=== PATIENT | female | born 1965 | race Caucasian/White ===

== ENCOUNTER 2017-10-04 10:50 | Emergency (ER) | payer MEDICAID ==
--- NOTE | 2017-10-04 12:16 | ED Physician Documentation ---
History of Present Illness - Stated complaint Stated Complaint: L EAR PAIN - Chief complaint Chief Complaint: Heent - History obtained from History obtained from: Patient, Family - History of Present Illness Timing: Today Pain level max: 8 Pain level now: 8 Improved by: rest Worsened by: moving - Additonal information Additional information: Patient is a 52-year-old female who presents to the emergency department with left ear pain starting today. Denies any other symptoms. No fevers, no rhinorrhea, no congestion. No sore throat. Does feel pain along the left side of her jaw. Also feels lightheaded when moving quickly. No chest pain. No palpitations. Review of Systems Constitutional: denies: Fever, Chills Nose: denies: Rhinorrhea / runny nose, Congestion Throat: denies: Sore throat Cardiac: denies: Chest pain / pressure Respiratory: denies: Cough GI: denies: Abdominal Pain, Nausea, Vomiting, Diarrhea Skin: denies: Rash Musculoskeletal: denies: Neck pain, Back pain Neurologic: denies: Headache PD PAST MEDICAL HISTORY - Past Medical History Past Medical History: No - Present Medications Home Medications: Ambulatory Orders Medication Instructions Recorded Confirmed Azithromycin [Zithromax] 0 mg PO DAILY #6 tablet 10/04/17 - Allergies Allergies/Adverse Reactions: Allergies Allergy/AdvReac Type Severity Reaction Status Date / Time morphine Allergy Anaphylaxis Verified 10/04/17 10:56 - Social History Does the pt smoke?: No Smoking Status: Never smoker Does the pt drink ETOH?: No Does the pt have substance abuse?: No - Immunizations Immunizations are current?: Yes - POLST Patient has POLST: No PD ED PE NORMAL - Vitals Vital signs reviewed: Yes - General General: Alert and oriented X 3, No acute distress - HEENT HEENT: PERRL, Moist mucous membranes, Pharynx benign, Other (Right tympanic membrane is normal. Left tympanic membrane is erythematous, dull, bulging with loss of landmarks. Fluid present behind the eardrum.) - Neck Neck: Supple, no meningeal sign, Other (Mild left-sided cervical lymphadenopathy ) - Cardiac Cardiac: RRR - Respiratory Respiratory: No respiratory distress, Clear bilaterally - Derm Derm: Warm and dry - Neuro Neuro: Alert and oriented X 3 - Psych Psych: Normal mood, Normal affect Results - Vitals Vitals: Vital Signs - 24 hr 10/04/17 10:54 Temperature 36.2 C L Heart Rate 87 Respiratory 16 Rate Blood Pressure 147/92 H O2 Saturation 96 PD MEDICAL DECISION MAKING - ED course Complexity details: considered differential, d/w patient ED course: Patient is a 52-year-old female with a left acute otitis media. Will place on antibiotics and follow-up closely with her doctor. No tympanic membrane rupture. Patient counseled regarding signs and symptoms for which I believe and urgent re-evaluation would be necessary. Patient with good understanding of and agreement to plan and is comfortable going home at this time This document was made in part using voice recognition software. While efforts are made to proofread this document, sound alike and grammatical errors may occur. - Sepsis Event Vital Signs: Vital Signs - 24 hr 10/04/17 10:54 Temperature 36.2 C L Heart Rate 87 Respiratory 16 Rate Blood Pressure 147/92 H O2 Saturation 96 Departure - Departure Disposition: 01 Home, Self Care Clinical Impression: Acute otitis media Qualifiers: Otitis media type: suppurative Laterality: left Recurrence: not specified as recurrent Spontaneous tympanic membrane rupture: without spontaneous rupture Qualified Code(s): H66.002 - Acute suppurative otitis media without spontaneous rupture of ear drum, left ear Condition: Good Instructions: ED Otitis Media Acute Adult Follow-Up: your,doctor in 1 week [Other] Prescriptions: Azithromycin [Zithromax] 0 mg PO DAILY #6 tablet Comments: Take all antibiotics until gone. Return if you worsen.
[2017-10-04 12:32] VITALS: BP 131/74
== END 2017-10-04 12:31 | disposition home or self-care (01) ==
LOC: ED 10:50
DX: H66.002 Acute suppurative otitis media without spontaneous rupture of ear drum, left ear (principal)
CPT/HCPCS: 99283

== ENCOUNTER 2018-02-10 08:06 | Emergency (ER) | payer MEDICAID ==
[2018-02-10] MEDS ORDERED: LIDOCAINE VISCOUS 2% 15 ML UDC MM STA (08:22)
[2018-02-10] MEDS ORDERED: PROMETHAZINE INJ 25 MG in SODIUM CHLORIDE 0.9% 50 ML IV STA (08:22)
[2018-02-10] MEDS ORDERED: SODIUM CHLORIDE 0.9% 1,000 ML IV ONE (08:22)
[2018-02-10] MEDS ORDERED: MAG HYDROX/AL HYDROX/SIMETH 30 ML UDC PO STA (08:23)
[2018-02-10] MEDS ORDERED: DICYCLOMINE 10 MG CAPSULE PO STA (08:23)
--- NOTE | 2018-02-10 08:25 | ED Physician Documentation ---
PD HPI ABD PAIN - Stated complaint Stated Complaint: ABD PX - History obtained from History obtained from: Patient, Friend - History of Present Illness Timing - onset: How many months ago (1) Timing - duration: Months (1) Timing - details: Abrupt onset, Still present, Waxing and waning Quality: Cramping, Sharp, Pain Location: Epigastric Radiation: Chest Improved by: Laying still, Meds Worsened by: Eating, Position, Palpation Associated symptoms: Nausea, Vomiting (dry heaves only has mulugeta) Similar symptoms before: Diagnosis (esophageal spasm) Recently seen: Not recently seen - Additional information Additional information: 52-year-old female who is status post Heath fundoplication has developed acute nausea and dry heaves she is not able to vomit and she has a significant amount of epigastric pain. She has had this happen to her off and on a number of times and for the past month she has been bothered by this and is not her usual medic ations to medicate it. She usually uses some Phenergan and some Bentyl when these episodes occur. She is recently moved to the area and has not been able to establish care as yet. She does have an appointment to see somebody at [facility]. Review of Systems Constitutional: denies: Fever Eyes: denies: Decreased vision Ears: denies: Ear pain Nose: denies: Congestion Throat: denies: Sore throat Cardiac: denies: Chest pain / pressure, Palpitations Respiratory: denies: Dyspnea, Cough GI: reports: Abdominal Pain, Nausea, Vomiting. denies: Constipation, Diarrhea : denies: Dysuria, Frequency PD PAST MEDICAL HISTORY - Present Medications Home Medications: Ambulatory Orders Medication Instructions Recorded Confirmed Dicyclomine [Bentyl] 10 mg PO QID PRN #20 capsule 02/10/18 Promethazine [Phenergan] 25 - 50 mg PO Q6H PRN #10 tab 02/10/18 - Allergies Allergies/Adverse Reactions: Allergies Allergy/AdvReac Type Severity Reaction Status Date / Time morphine Allergy Anaphylaxis Verified 02/10/18 08:25 - Social History Does the pt smoke?: No Smoking Status: Never smoker Does the pt drink ETOH?: No Does the pt have substance abuse?: No - Immunizations Immunizations are current?: Yes - POLST Patient has POLST: No PD ED PE NORMAL - Vitals Vital signs reviewed: Yes - General General: Alert and oriented X 3, Well developed/nourished, Other (appears to be in pain with gifted teacher tone and flat affect) - HEENT HEENT: Atraumatic, PERRL, EOMI, Other (dry mucous membranes) - Neck Neck: Supple, no meningeal sign, No bony TTP - Cardiac Cardiac: RRR, No murmur - Respiratory Respiratory: No respiratory distress, Clear bilaterally - Abdomen Abdomen: Soft, Other (mild epigastric tenderness ) - Back Back: No CVA TTP, No spinal TTP - Derm Derm: Normal color, Warm and dry, No rash - Extremities Extremities: No deformity, No edema - Neuro Neuro: Alert and oriented X 3, 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, No motor deficit, No sensory deficit, Normal speech Eye Opening: Spontaneous Motor: Obeys Commands Verbal: Oriented GCS Score: 15 - Psych Psych: Normal mood Results - Vitals Vitals: Vital Signs - 24 hr 02/10/18 02/10/18 02/10/18 08:10 09:45 11:05 Temperature 36.2 C L Heart Rate 90 88 89 Respiratory 20 18 18 Rate Blood Pressure 172/100 H 154/90 H 164/98 H O2 Saturation 100 97 Oxygen O2 Source Room air - Labs Labs: Laboratory Tests 02/10/18 02/10/18 02/10/18 08:35 08:35 08:35 WBC 7.9 RBC 4.44 Hgb 14.7 Hct 41.4 MCV 93.3 MCH 33.2 H MCHC 35.6 RDW 13.3 Plt Count 328 MPV 7.7 L Neut # (Auto) 5.2 Lymph # (Auto) 2.1 [place] # (Auto) 0.5 Eos # (Auto) 0.1 Baso # (Auto) 0.0 Absolute Nucleated RBC 0.00 Nucleated RBC % 0.1 Sodium 138 Potassium 3.8 Chloride 106 Carbon Dioxide 23 Anion Gap 9.0 BUN 9 Creatinine 0.6 Estimated GFR (MDRD) 105 Glucose 119 H Calcium 8.7 Total Bilirubin 0.6 AST 26 ALT 28 Alkaline Phosphatase 125 H Troponin I < 0.04 Total Protein 7.6 Albumin 4.1 Globulin 3.5 Albumin/Globulin Ratio 1.2 Lipase 37 Procedures - IVC sono (time) 0820 Bedside IVC sono: IVC measures (cm) (1.28), Dehydration (mild est <1 liter deficit) PD MEDICAL DECISION MAKING - ED course Complexity details: reviewed old records, reviewed results, re-evaluated patient, considered differential, d/w patient ED course: 52-year-old female with a Heath fundoplication has developed nausea and epigastric pain she is not able to vomit she is having a lot of dry heaves. Here in the emergency department we have treated her with medications she has requested including Phenergan and Bentyl. She is also given a GI cocktail and a liter of saline. She requires a dose of diluadid to get the spasm to stop. She has had some luck getting these episodes under control with the use of phenergan and bentyl. Departure - Departure Disposition: 01 Home, Self Care Clinical Impression: Esophageal spasm Condition: Stable Instructions: ED Spasm Esophageal Follow-Up: [facility] [Provider Group] Prescriptions: Dicyclomine [Bentyl] 10 mg PO QID PRN #20 capsule PRN Reason: Spasms Promethazine [Phenergan] 25 - 50 mg PO Q6H PRN #10 tab PRN Reason: Nausea / Vomiting
[2018-02-10 08:42] LABS: BASOPHILS % (AUTO) 0.5 %; EOSINOPHILS # (AUTO) 0.1 10^3/uL (0.0-0.7); EOSINOPHILS % (AUTO) 1.7 %; HGB - HEMOGLOBIN 14.7 g/dL (12.0-16.0); LYMPHOCYTES # (AUTO) 2.1 10^3/uL (1.5-3.5); LYMPHOCYTES % (AUTO) 26.4 %; MEAN CORPUSCULAR HEMOGLOBIN 33.2 pg (27.0-31.0); MEAN CORPUSCULAR HGB CONC 35.6 g/dL (32.0-36.0); MEAN CORPUSCULAR VOLUME 93.3 fL (81.0-99.0); MEAN PLATELET VOLUME 7.7 fL (7.9-10.8); MONOCYTES # (AUTO) 0.5 10^3/uL (0.0-1.0); MONOCYTES % (AUTO) 5.9 %; NEUTROPHILS # (AUTO) 5.2 10^3/uL (1.5-6.6); NEUTROPHILS % (AUTO) 65.5 %; PLT - PLATELET COUNT 328 10^3/uL (130-450); RED BLOOD COUNT 4.44 10^6/uL (4.20-5.40); RED CELL DISTRIBUTION WIDTH 13.3 % (12.0-15.0); WHITE BLOOD COUNT 7.9 x10^3/uL (4.8-10.8)
[2018-02-10 08:56] LABS: ALBUMIN 4.1 g/dL (3.2-5.5); ALBUMIN/GLOBULIN RATIO 1.2 (1.0-2.2); BILIRUBIN,TOTAL 0.6 mg/dL (0.2-1.0); CALCIUM 8.7 mg/dL (8.5-10.3); CREATININE 0.6 mg/dL (0.4-1.0); TOTAL PROTEIN 7.6 g/dL (6.7-8.2)
[2018-02-10] MEDS ORDERED: HYDROmorphone 1 MG/ML CARPUJECT IVP STA (10:44)
[2018-02-10 11:54] VITALS: BP 136/82
== END 2018-02-10 12:03 | disposition home or self-care (01) ==
LOC: ED 08:06
DX: K22.4 Dyskinesia of esophagus (principal); E86.0 Dehydration; Z98.890 Other specified postprocedural states
CPT/HCPCS: 36415; 80053; 83690; 84484; 85025; 96361; 96365; 96375; 99283; 99284; A9270; J1170; J7040

== ENCOUNTER 2018-07-06 14:02 | Outpatient (CLI) | payer MEDICAID | END 2018-07-06 14:03 | disposition home or self-care (01) | LOC: SC 14:02 | PROVIDERS: ATTEND Internal Medicine Pulmonary Disease | DX: G47.10 Hypersomnia, unspecified (principal); R06.81 Apnea, not elsewhere classified; R06.83 Snoring; G47.8 Other sleep disorders; R41.89 Other symptoms and signs involving cognitive functions and awareness | CPT/HCPCS: 99203; 99212 ==

== ENCOUNTER → 2018-07-26 | Outpatient (CLI) | payer MEDICAID | LOC: SC 19:30 | PROVIDERS: ATTEND Internal Medicine Pulmonary Disease | DX: G47.33 Obstructive sleep apnea (adult) (pediatric) (principal) | CPT/HCPCS: 95806 ==

== ENCOUNTER 2018-09-14 14:12 | Outpatient (CLI) | payer MEDICAID | END 2018-09-14 14:13 | disposition home or self-care (01) | LOC: SC 14:12 | PROVIDERS: ATTEND Internal Medicine Pulmonary Disease | DX: G47.33 Obstructive sleep apnea (adult) (pediatric) (principal) | CPT/HCPCS: 99212; 99213 ==

== ENCOUNTER 2018-09-29 07:35 | Day surgery (SDC) | payer MEDICAID ==
[2018-09-29] MEDS ORDERED: LACTATED RINGERS 1,000 ML IV ONE ×2 (07:45→10:10)
[2018-09-29] MEDS ORDERED: CEFAZOLIN SODIUM IN 0.9 % NACL 2 GM/100 ML BAG IV ONE (08:01)
--- NOTE | 2018-09-29 08:39 | ANESTHESIA ---
Pre-Anesthesia VS, & Labs - Diagnosis left thumb first joint arthritis - Procedure left thumb carpal metacarpal arthroplasty Vital Signs: Temp Pulse Resp BP Pulse Ox 36.2 C L 78 16 132/84 H 100 09/29/18 07:50 09/29/18 07:50 09/29/18 07:50 09/29/18 07:50 09/29/18 07:50 Height 5 ft 1 in Weight (kg) 73.6 kg Body Mass Index 30.2 - NPO >8 hours - Is Patient ?: Not Applicable Home Medications and Allergies Home Medications: Ambulatory Orders Chlorthalidone 12.5 mg PO DAILY 09/23/18 Ferrous Sulfate 325 mg PO ONCE 09/23/18 Gabapentin 200 mg PO TID 09/23/18 Ipratropium [Atrovent] 1 - 2 puffs INH Q6H PRN 09/23/18 Lisinopril 20 mg PO DAILY 09/23/18 Oxybutynin Chloride 5 mg PO BID PRN 09/23/18 Sucralfate [Carafate] 1 gm PO ACHS 09/23/18 Chlorthalidone 12.5 mg PO DAILY 09/23/18 Ferrous Sulfate 325 mg PO ONCE 09/23/18 Gabapentin 200 mg PO TID 09/23/18 Ipratropium [Atrovent] 1 - 2 puffs INH Q6H PRN 09/23/18 Lisinopril 20 mg PO DAILY 09/23/18 Oxybutynin Chloride 5 mg PO BID PRN 09/23/18 Sucralfate [Carafate] 1 gm PO ACHS 09/23/18 Allergies/Adverse Reactions: Allergies Allergy/AdvReac Type Severity Reaction Status Date / Time morphine Allergy Anaphylaxis Verified 03/25/18 14:03 Anes History & Medical History - Anesthetic History Anesthesia Complications: reports: Post-Operative Nausea/Vomiting Family history of Anesthesia Complications: Denies Family history of Malignant Hyperthermia: Denies - Medical History Cardiovascular: reports: Hypertension Pulmonary: reports: Sleep apnea Gastrointestinal: reports: Hiatal hernia Urinary: reports: None Musculoskeletal: reports: Osteoarthritis Endocrine/Autoimmune: reports: None Skin: reports: None Smoking Status: Never smoker - Surgical History General: Gastric surgery Gynecologic: Hysterectomy Exam General: Alert, Oriented x3, Cooperative, No acute distress Dental: Loose/Frag Mouth Openin Fingerbreadth Neck Mobility: Normal Mallampati classification: II Thyromental Distance: greater than 6 cm Respiratory: Lungs clear, Normal breath sounds, No respiratory distress, No accessory muscle use Cardiovascular: Regular rate, Normal S1, Normal S2, No murmurs Plan Anesthesia Type: General Consent for Procedure(s) Verified and Reviewed: Yes Code Status: Attempt Resuscitation ASA classification: 2-Mild systemic disease Is this case an emergency?: No
[2018-09-29] MEDS ORDERED: SCOPOLAMINE PATCH TOP ONE (08:50)
[2018-09-29] MEDS ORDERED: BUPIVACAINE 0.25% PF 30 ML VIAL ONE ×2 (09:11→09:16)
[2018-09-29] MEDS ORDERED: BUPIVACAINE 0.25% PF 30 ML VIAL SUBQ ONE ×2 (09:19)
[2018-09-29] MEDS ORDERED: MIDAZOLAM 2 MG/2 ML VIAL IVP ONE (10:20)
[2018-09-29] MEDS ORDERED: KETOROLAC 30 MG/ML VIAL IVP ONE (10:20)
[2018-09-29] MEDS ORDERED: fentaNYL 100 MCG/2 ML VIAL IVP ONE (10:20)
[2018-09-29] MEDS ORDERED: ONDANSETRON 4 MG/2 ML VIAL IVP ONE (10:20)
[2018-09-29] MEDS ORDERED: LIDOCAINE-MPF 2% 5 ML VIAL IM ONE (10:20)
[2018-09-29] MEDS ORDERED: PROPOFOL 200 MG/20 ML VIAL IVP ONE (10:20)
[2018-09-29] MEDS ORDERED: DEXAMETHASONE 4 MG/ML VIAL IVP ONE (10:20)
[2018-09-29] MEDS ORDERED: ONDANSETRON 4 MG/2 ML VIAL IVP PRN (10:54)
[2018-09-29] MEDS: HYDROmorphone 0.5 MG/0.5 ML SYRINGE IVP PRN ×2 (11:07→11:14)
[2018-09-29] MEDS: HYDROmorphone 0.5 MG/0.5 ML SYRINGE ONE ×2 (11:20→11:25)
[2018-09-29] MEDS ORDERED: ONDANSETRON 4 MG/2 ML VIAL ONE (11:37)
[2018-09-29] MEDS ORDERED: traMADol 50 MG TABLET PO PRN (12:25)
[2018-09-29 14:40] VITALS: BP 131/71
--- NOTE | 2018-09-29 20:33 | PROCEDURE REPORT ---
DATE OF SERVICE: 09/29/2018 Physician: Sara Gerber MD PREOPERATIVE DIAGNOSIS: Right thumb first carpometacarpal joint arthritis and loose bodies. POSTOPERATIVE DIAGNOSIS: Right thumb first carpometacarpal joint arthritis and loose bodies. PROCEDURE PERFORMED: Left thumb first carpometacarpal joint arthroplasty with trapezium excision and removal of loose bodies and suspension arthroplasty utilizing flexor carpi radialis tendon. SURGEON: Sara Gerber MD ANESTHESIA: General by Donny Hernández. 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 DESCRIPTION OF OPERATIVE PROCEDURE: The patient was taken to the operating room and was given a gene ral anesthetic in a supine position. A tourniquet was placed on the left arm. The left forearm and hand were sterilely prepped and draped in standard fashion. Surgical timeout was held. The limb was exsanguinated and the tourniquet inflated to 250 mmHg. The patient's thumb was approached through a curved incision over the base of the thumb, carefully through skin and subcutaneous tissue, dissecti ng down to the extensor tendons. These were carefully retracted to the side, which then exposed the base of the bone. The capsule of the first carpometacarpal joint was opened longitudinally, extendin g that dissection proximally until the crossing vessels were identified, and then reflecting tissue o ff the trapezium to allow excision of that bone, which was accomplished utilizing a small saw, follow ed by osteotome and rongeur. Multiple loose bodies were identified in and around the base of the fir st metacarpal and these were removed. At this point, the flexor carpi radialis was harvested utiliz ing dissection up along the course of the tendon and dividing it to use the distal stump as a ligamen t reconstruction. Whip stitches of Ti-Cron were placed into this and it was set aside. A drill hole was made in the base of the thumb and widened to accept this graft, and then the thumb was positione d so that the graft could be passed, and once passed the thumb was then pinned utilizing a 0.062 K-wi re driven into the carpus. This allowed excellent position of the thumb and the graft was secured ty ing down the suture, and the tourniquet was deflated. There was minimal bleeding. The area was irri gated thoroughly, followed by closure of the capsule, the base of the thumb with Ti-Cron suture, foll owed by Vicryl closure of subcutaneous tissue and Monocryl closure of skin. Infiltration was again p erformed with Marcaine. Sterile dressings were applied. The patient was then casted in a thumb spic a cast, which was very well-padded and somewhat loosely applied for comfort. The patient was taken t o the recovery room in stable condition. ESTIMATED BLOOD LOSS: Minimal. COMPLICATIONS: None. COUNTS: Sponge and needle counts correct. TD: 09/29/2018 15:42
== END 2018-09-29 07:36 | disposition home or self-care (01) ==
LOC: SDS 07:35
PROVIDERS: ATTEND Orthopaedic Surgery
PROC: 0RRT07Z Replacement of Left Carpometacarpal Joint with Autologous Tissue Substitute, Open Approach (ICD-10-PCS; 2018-09-29)
PROC: 0LX80ZZ Transfer Left Hand Tendon, Open Approach (ICD-10-PCS; principal; 2018-09-29 09:30)
DX: M18.12 Unilateral primary osteoarthritis of first carpometacarpal joint, left hand (principal); I10 Essential (primary) hypertension; G47.30 Sleep apnea, unspecified; K44.9 Diaphragmatic hernia without obstruction or gangrene; K20.9 Esophagitis, unspecified
CPT/HCPCS: 25447; 26483; A9270; C1713; J0690; J1170; J3490; J7120

== ENCOUNTER 2019-04-09 15:46 | Outpatient (CLI) | payer MEDICAID ==
[2019-04-09 17:41] LABS: BASOPHILS # (AUTO) 0.1 10^3/uL (0.0-0.1); BASOPHILS % (AUTO) 0.6 %; EOSINOPHILS # (AUTO) 0.1 10^3/uL (0.0-0.7); EOSINOPHILS % (AUTO) 1.8 %; HGB - HEMOGLOBIN 14.4 g/dL (12.0-16.0); LYMPHOCYTES # (AUTO) 2.8 10^3/uL (1.5-3.5); LYMPHOCYTES % (AUTO) 35.7 %; MEAN CORPUSCULAR HEMOGLOBIN 32.1 pg (27.0-31.0); MEAN CORPUSCULAR HGB CONC 33.4 g/dL (32.0-36.0); MEAN CORPUSCULAR VOLUME 96.2 fL (81.0-99.0); MEAN PLATELET VOLUME 10.6 fL (7.9-10.8); MONOCYTES # (AUTO) 0.6 10^3/uL (0.0-1.0); MONOCYTES % (AUTO) 7.8 %; NEUTROPHILS # (AUTO) 4.2 10^3/uL (1.5-6.6); NEUTROPHILS % (AUTO) 53.8 %; PLT - PLATELET COUNT 355 10^3/uL (130-450); RED BLOOD COUNT 4.48 10^6/uL (4.20-5.40); RED CELL DISTRIBUTION WIDTH 12.7 % (12.0-15.0); WHITE BLOOD COUNT 7.8 x10^3/uL (4.8-10.8)
[2019-04-09 17:59] LABS: CALCIUM 8.7 mg/dL (8.5-10.3); CREATININE 0.6 mg/dL (0.4-1.0)
== END 2019-04-09 15:47 | disposition home or self-care (01) ==
LOC: LAB.S 15:46
PROVIDERS: ATTEND Registered Nurse
DX: Z01.812 Encounter for preprocedural laboratory examination (principal)
CPT/HCPCS: 36415; 80048; 85025

== ENCOUNTER 2020-06-21 09:25 | Outpatient (CLI) | payer MEDICAID ==
[2020-06-21 14:28] LABS: BASOPHILS % (AUTO) 0.4 %; EOSINOPHILS # (AUTO) 0.1 10^3/uL (0.0-0.7); EOSINOPHILS % (AUTO) 1.5 %; HCT - HEMATOCRIT 42.7 % (37.0-47.0); HGB - HEMOGLOBIN 14.3 g/dL (12.0-16.0); LYMPHOCYTES # (AUTO) 2.4 10^3/uL (1.5-3.5); LYMPHOCYTES % (AUTO) 32.1 %; MEAN CORPUSCULAR HEMOGLOBIN 32.4 pg (27.0-31.0); MEAN CORPUSCULAR HGB CONC 33.5 g/dL (32.0-36.0); MEAN CORPUSCULAR VOLUME 96.8 fL (81.0-99.0); MEAN PLATELET VOLUME 10.3 fL (7.9-10.8); MONOCYTES # (AUTO) 0.5 10^3/uL (0.0-1.0); MONOCYTES % (AUTO) 6.3 %; NEUTROPHILS # (AUTO) 4.4 10^3/uL (1.5-6.6); NEUTROPHILS % (AUTO) 59.3 %; PLT - PLATELET COUNT 335 10^3/uL (130-450); RED BLOOD COUNT 4.41 10^6/uL (4.20-5.40); RED CELL DISTRIBUTION WIDTH 13.1 % (12.0-15.0); WHITE BLOOD COUNT 7.4 x10^3/uL (4.8-10.8)
[2020-06-21 15:09] LABS: ALBUMIN 4.2 g/dL (3.2-5.5); ALBUMIN/GLOBULIN RATIO 1.3 (1.0-2.2); ALKALINE PHOSPHATASE 108 IU/L (42-121); ALT ALANINE AMINOTRANSFERASE 28 IU/L (10-60); AST ASPARTATE AMINOTRANSFERASE 21 IU/L (10-42); BILIRUBIN,TOTAL 0.6 mg/dL (0.2-1.0); BUN - BLOOD UREA NITROGEN 16 mg/dL (6-20); CALCIUM 9.1 mg/dL (8.5-10.3); CARBON DIOXIDE - CO2 22 mmol/L (21-32); CHLORIDE 109 mmol/L (101-111); CHOLESTEROL 288 mg/dL; CREATININE 0.6 mg/dL (0.4-1.0); GFR - MDRD 103 (>89); GLUCOSE 127 mg/dL (70-100); HDL CHOLESTEROL 32 mg/dL; SODIUM 138 mmol/L (135-145); TOTAL PROTEIN 7.5 g/dL (6.7-8.2); TRIGLYCERIDES 705 mg/dL
[2020-06-21 15:11] LABS: THYROID STIMULATING HORMONE 2.21 uIU/mL (0.34-5.60)
[2020-06-21 15:53] LABS: LDL CHOLESTEROL,DIRECT 121 mg/dL; LDLD/HDL RATIO 3.8 (<4.4)
== END 2020-06-21 09:26 | disposition home or self-care (01) ==
LOC: LAB.S 09:25
PROVIDERS: ATTEND Registered Nurse
DX: Z01.812 Encounter for preprocedural laboratory examination (principal); N39.3 Stress incontinence (female) (male); R06.83 Snoring; I10 Essential (primary) hypertension; F41.9 Anxiety disorder, unspecified; F32.9 Major depressive disorder, single episode, unspecified
CPT/HCPCS: 36415; 80053; 80061; 83721; 84443; 85025

== ENCOUNTER 2020-10-09 08:39 | Outpatient (CLI) | payer MEDICAID ==
--- NOTE | 2020-10-09 10:37 | XRAY Report ---
PROCEDURE: Knee 4 View RT INDICATIONS: RIGHT KNEE ARTHRITIS TECHNIQUE: 4 views of the right knee(s) were acquired. COMPARISON: None. FINDINGS: Bones: No fractures or dislocations. Moderate tricompartmental osteoarthritis is seen more prominent in patellofemoral compartment with slight lateral subluxation of patella. No suspicious bony lesions . Soft tissues: Small to moderate suprapatellar joint effusion is seen. No suspicious soft tissue calci fications. IMPRESSION: Moderate tricompartmental osteoarthritis more prominent in patellofemoral compartment. S mall to moderate joint effusion. No fracture or dislocation. Reviewed by: Nba Carrizales MD on 10/09/2020 10:36 AM PDT Approved by: Nba Carrizales MD on 10/09/2020 10:36 AM PDT Station ID: [id number]
== END 2020-10-09 08:40 | disposition home or self-care (01) ==
LOC: DI.S 08:39
PROVIDERS: ATTEND Physician Assistant
DX: M17.11 Unilateral primary osteoarthritis, right knee (principal); M25.461 Effusion, right knee

== ENCOUNTER 2021-06-09 09:35 | Outpatient (CLI) | payer MEDICAID ==
[2021-06-09 15:50] LABS: BASOPHILS % (AUTO) 0.6 %; EOSINOPHILS # (AUTO) 0.1 10^3/uL (0.0-0.7); EOSINOPHILS % (AUTO) 1.9 %; HCT - HEMATOCRIT 39.9 % (37.0-47.0); HGB - HEMOGLOBIN 13.3 g/dL (12.0-16.0); LYMPHOCYTES # (AUTO) 2.6 10^3/uL (1.5-3.5); LYMPHOCYTES % (AUTO) 38.1 %; MEAN CORPUSCULAR HEMOGLOBIN 32.7 pg (27.0-31.0); MEAN CORPUSCULAR HGB CONC 33.3 g/dL (32.0-36.0); MEAN PLATELET VOLUME 10.4 fL (7.9-10.8); MONOCYTES # (AUTO) 0.5 10^3/uL (0.0-1.0); MONOCYTES % (AUTO) 7.1 %; NEUTROPHILS # (AUTO) 3.5 10^3/uL (1.5-6.6); NEUTROPHILS % (AUTO) 52.2 %; PLT - PLATELET COUNT 348 10^3/uL (130-450); RED BLOOD COUNT 4.07 10^6/uL (4.20-5.40); RED CELL DISTRIBUTION WIDTH 12.6 % (12.0-15.0); WHITE BLOOD COUNT 6.8 x10^3/uL (4.8-10.8)
[2021-06-09 17:08] LABS: ALBUMIN 4.2 g/dL (3.2-5.5); ALBUMIN/GLOBULIN RATIO 1.4 (1.0-2.2); ALKALINE PHOSPHATASE 111 IU/L (42-121); ALT ALANINE AMINOTRANSFERASE 30 IU/L (10-60); AST ASPARTATE AMINOTRANSFERASE 20 IU/L (10-42); BILIRUBIN,TOTAL 0.4 mg/dL (0.2-1.0); BUN - BLOOD UREA NITROGEN 18 mg/dL (6-20); CALCIUM 9.4 mg/dL (8.5-10.3); CARBON DIOXIDE - CO2 25 mmol/L (21-32); CHLORIDE 106 mmol/L (101-111); CHOL/HDL RATIO 3.7 (<4.4); CHOLESTEROL 121 mg/dL; CREATININE 0.5 mg/dL (0.4-1.0); GFR - MDRD 128 (>89); GLUCOSE 114 mg/dL (70-100); HDL CHOLESTEROL 33 mg/dL; LDL CHOLESTEROL,CALCULATED 51 mg/dL; LDL/HDL RATIO 1.5 (<4.4); POTASSIUM 4.2 mmol/L (3.5-5.0); SODIUM 141 mmol/L (135-145); TOTAL PROTEIN 7.3 g/dL (6.7-8.2); TRIGLYCERIDES 187 mg/dL; VLDL CHOLESTEROL 37 mg/dL
[2021-06-09 17:15] LABS: THYROID STIMULATING HORMONE 1.06 uIU/mL (0.34-5.60)
== END 2021-06-09 09:36 | disposition home or self-care (01) ==
LOC: LAB.S 09:35
PROVIDERS: ATTEND Registered Nurse
DX: E87.1 Hypo-osmolality and hyponatremia (principal); E78.5 Hyperlipidemia, unspecified; Z13.29 Encounter for screening for other suspected endocrine disorder; Z79.899 Other long term (current) drug therapy
CPT/HCPCS: 36415; 80053; 80061; 83721; 84443; 85025

== ENCOUNTER 2021-12-02 05:38 | Emergency (ER) | payer MEDICAID ==
--- NOTE | 2021-12-02 05:44 | ED Physician Documentation ---
History of Present Illness - Stated complaint Stated Complaint: FACIAL SYMPTOMS/HEAD PX - History obtained from History obtained from: Patient - History of Present Illness Timing: How many days ago (Friday night) Pain level now: 8 Improved by: nothing Worsened by: no exacerbating factors - Additonal information Additional information: patient developed gradual onset dental pain associated with right 2nd mandibular molar Friday, which steadily progressed and by the morning she has noticeable facial swelling. She went to a Clinic on Friday and was prescribed augmentin, has taken three doses of this so far but presents due to continued progression of facial swelling and intensity of pain. Denies fevers Review of Systems Constitutional: denies: Fever Throat: reports: Dental pain / toothache Musculoskeletal: denies: Neck pain Neurologic: reports: Headache (right-sided, predominantly right facial pain) PD PAST MEDICAL HISTORY - Past Medical History Cardiovascular: Hypertension Respiratory: Sleep apnea Endocrine/Autoimmune: None GI: Hiatal hernia : None HEENT: None Psych: Anxiety, Claustrophobia Musculoskeletal: Osteoarthritis Derm: None - Past Surgical History Past Surgical History: Yes General: Gastric surgery /REBRANDER: Hysterectomy - Present Medications Home Medications: Ambulatory Orders Medication Instructions Recorded Confirmed Chlorthalidone 12.5 mg PO DAILY 09/23/18 09/29/18 Ferrous Sulfate 325 mg PO ONCE 09/23/18 09/29/18 Gabapentin 200 mg PO TID 09/23/18 09/29/18 Ipratropium [Atrovent] 1 - 2 puffs INH Q6H PRN 09/23/18 09/29/18 Oxybutynin Chloride 5 mg PO BID PRN 09/23/18 09/29/18 Sucralfate [Carafate] 1 gm PO ACHS 09/23/18 09/29/18 lisinopriL [Lisinopril] 20 mg PO DAILY 09/23/18 09/29/18 Ibuprofen [Motrin] 800 mg PO Q8H PRN #30 tablet 12/02/21 Ondansetron Odt [Zofran] 4 mg TL Q6H PRN #10 tablet 12/02/21 Oxycodone HCl/Acetaminophen 1 - 2 each PO Q6H PRN #14 tablet 12/02/21 [Percocet 5-325 mg Tablet] - Allergies Allergies/Adverse Reactions: Allergies Allergy/AdvReac Type Severity Reaction Status Date / Time morphine Allergy Anaphylaxis Verified 12/02/21 05:59 - Social History Does the pt smoke?: No Smoking Status: Never smoker Does the pt drink ETOH?: No Does the pt have substance abuse?: No - Immunizations Immunizations are current?: Yes - POLST Patient has POLST: No PD ED PE NORMAL - Vitals Vital signs reviewed: Yes - General General: Alert and oriented X 3, Well developed/nourished, Other (appears uncomfortable, moderate painful distress) - HEENT HEENT: Moist mucous membranes, Other (right-sided facial swelling most pronounced right cheek, extends to right periorbit and right anterolateral neck/submandibular) - Neck Neck: Supple, no meningeal sign PD ED PE EXPANDED - HEENT HEENT: Dental decay (diffuse dental attrition. no grossly visible intraoral abscess or drainage) Results - Vitals Vitals: Vital Signs - 24 hr 12/02/21 12/02/21 12/02/21 05:46 05:48 07:42 Temperature 36.7 C Heart Rate 98 90 79 Respiratory 20 18 17 Rate Blood Pressure 172/83 H 167/76 H 108/86 H O2 Saturation 98 98 95 Oxygen O2 Source Room air - Labs Labs: Laboratory Tests 12/02/21 12/02/21 06:12 06:36 WBC 11.9 H RBC 3.92 L Hgb 12.9 Hct 37.7 MCV 96.2 MCH 32.9 H MCHC 34.2 RDW 12.6 Plt Count 259 MPV 9.9 Neut # (Auto) 9.1 H Lymph # (Auto) 1.8 [place] # (Auto) 0.8 Eos # (Auto) 0.2 Baso # (Auto) 0.0 Absolute Nucleated RBC 0.00 Nucleated RBC % 0.0 Sodium 144 Potassium 4.0 Chloride 108 Carbon Dioxide 25 Anion Gap 11.0 BUN 15 Creatinine 0.5 Estimated GFR (MDRD) 127 Glucose 174 H Calcium 9.5 - Rads (name of study) CT maxilofacial Radiology: Prelim report reviewed, See rad report PD MEDICAL DECISION MAKING - ED course Complexity details: reviewed results, re-evaluated patient, considered differential, d/w patient ED course: Care of patient turned over to Dr. Collins at end of my shift pending CT results. Differential diagnoses include facial cellulitis, abscess, sinusitis. She is given IV dilaudid 1mg IV as well as 1 liter NS and 4mg zofran. On reevaluation before end of my shift, she reports improvement with the dilaudid although she appears to remain in moderate painful distress, holding her face and gently rocking back and forth. I recommended repeat dose of dilaudid , will give 0.5mg IV dilaudid as she is worried about side effects if she gets too much dilaudid (specifically, dizziness and nausea). She is also given 3 grams IV unasyn and 15mg IV toradol Departure - Departure Disposition: 01 Home, Self Care Clinical Impression: Dental infection, Facial cellulitis, Acute bacterial sinusitis Condition: Stable Instructions: ED Infec Skin Cellulitis, ED Abscess Dental, ED Sinusitis Abx Tx Follow-Up: Julius Pardo DDS [Provider Admit Priv/Credential] - Prescriptions: Ibuprofen [Motrin] 800 mg PO Q8H PRN #30 tablet PRN Reason: PAIN &/OR FEVER Oxycodone HCl/Acetaminophen [Percocet 5-325 mg Tablet] 1 - 2 each PO Q6H PRN #14 tablet PRN Reason: pain Ondansetron Odt [Zofran] 4 mg TL Q6H PRN #10 tablet PRN Reason: Nausea / Vomiting Comments: Your CT scan shows infection in the flash of your cheek and also in your sinus on the right. This appears to be coming from the infected tooth. Your case has been discussed with Dr. Julius Simon, our local oral maxillofacial surgeon. He feels that you need more time on the oral antibiotics and that you can be treated as an outpatient. He would like to see you in his office on Friday and for this you should call the office at the number provided first thing on Friday. However, he has said that if you are continuing to have pain that is unbearable today, to give him a call at his cell phone number, which is [phone], and he will take your tooth out today in his office where he has all his equipment. Please continue the Augmentin as directed. You have been given a dose of IV antibiotics here in the emergency department, as well as IV pain medicine and a dose of nausea medicine. Your prescriptions been electronically transmitted to [facility] in [place]. Discharge Date/Time: 12/02/21 09:23
--- OUTSIDE RECORDS SUMMARY | 2021-12-02 05:44 | EXTERNAL MEDICAL SUMMARY RPT | Continuity of Care Document ---
:1965 Author Organization [facility] Address [address] [place] [address] Phone Care Team Providers Name Role Phone Unavailable Unavailable Unavailable [employer] Manager Of Employee Relations-C Unavailable Unavailable Allergies No information. Encounters No information. Functional Status No information. Immunizations No information. Medications date description facility [id number]+0000 diclofenac sodium [facility] [phone]+0000 quetiapine [facility] [phone]+0000 quetiapine [facility] [phone]+0000 quetiapine [facility] [phone]+0000 quetiapine [facility] [phone]+0000 gabapentin [facility] [phone]+0000 gabapentin [facility] [phone]+0000 diclofenac sodium [facility] [phone]+0000 gabapentin [facility] [phone]+0000 gabapentin [facility] [phone]+0000 quetiapine [facility] [phone]+0000 quetiapine [facility] [phone]+0000 gabapentin [facility] [phone]+0000 gabapentin [facility] [phone]+0000 quetiapine [facility] [phone]+0000 quetiapine [facility] [phone]+0000 diclofenac sodium [facility] [phone]+0000 gabapentin [facility] [phone]+0000 gabapentin [facility] [phone]+0000 diclofenac sodium [facility] [phone]+0000 celecoxib [facility] [phone]+0000 celecoxib [facility] Problems No information. Procedures date description facility +0000 Visit Code Hold [facility] [phone]+0000 Visit Code Hold [facility] Results/Labs No information. Social History date description facility +0000 Never smoker [facility] [phone]+0000 Never smoker [facility] Vital Signs date measurement value units +0000 BMI BMI 29.96 kg/m2 [id number]+0000 BP_diastolic BP_diastolic 94 mmHg [id number]+0000 BP_systolic BP_systolic 144 mmHg [id number]+0000 heart_rate heart_rate 88 /min [id number]+0000 height_metric height_metric 154.94 cm [id number]+0000 height_standard height_standard 61 in [id number]+0000 respiration_rate respiration_rate 16 /min [id number]+0000 temperature_metric temperature_metric 36.67 C [id number]+0000 temperature_standard temperature_standard 9 8 F [id number]+0000 weight_metric weight_metric 71.67 kg [id number]+0000 weight_standard weight_standard 158 lb
[2021-12-02] MEDS ORDERED: SODIUM CHLORIDE 0.9% 1,000 ML IV STA (06:00)
[2021-12-02] MEDS ORDERED: HYDROmorphone 1 MG/ML CARPUJECT IVP STA ×3 (06:00→08:59)
[2021-12-02] MEDS ORDERED: ONDANSETRON 4 MG/2 ML VIAL IVP STA ×2 (06:01→08:59)
[2021-12-02] MEDS ORDERED: KETOROLAC 15 MG/ML VIAL IVP STA (06:01)
[2021-12-02] MEDS ORDERED: AMPICILLIN/SULBACTAM 3 GM in SODIUM CHLORIDE 0.9% MINIBAG 100 ML IV STA (06:04)
[2021-12-02 06:17] LABS: BASOPHILS % (AUTO) 0.2 %; EOSINOPHILS # (AUTO) 0.2 10^3/uL (0.0-0.7); EOSINOPHILS % (AUTO) 1.5 %; HCT - HEMATOCRIT 37.7 % (37.0-47.0); HGB - HEMOGLOBIN 12.9 g/dL (12.0-16.0); LYMPHOCYTES # (AUTO) 1.8 10^3/uL (1.5-3.5); LYMPHOCYTES % (AUTO) 15.3 %; MEAN CORPUSCULAR HEMOGLOBIN 32.9 pg (27.0-31.0); MEAN CORPUSCULAR HGB CONC 34.2 g/dL (32.0-36.0); MEAN CORPUSCULAR VOLUME 96.2 fL (81.0-99.0); MEAN PLATELET VOLUME 9.9 fL (7.9-10.8); MONOCYTES # (AUTO) 0.8 10^3/uL (0.0-1.0); MONOCYTES % (AUTO) 6.6 %; NEUTROPHILS # (AUTO) 9.1 10^3/uL (1.5-6.6); NEUTROPHILS % (AUTO) 76.1 %; PLT - PLATELET COUNT 259 10^3/uL (130-450); RED BLOOD COUNT 3.92 10^6/uL (4.20-5.40); RED CELL DISTRIBUTION WIDTH 12.6 % (12.0-15.0); WHITE BLOOD COUNT 11.9 x10^3/uL (4.8-10.8)
[2021-12-02 06:49] LABS: CALCIUM 9.5 mg/dL (8.5-10.3); CREATININE 0.5 mg/dL (0.4-1.0)
[2021-12-02 07:43] VITALS: BP 108/86
--- NOTE | 2021-12-02 07:48 | CT Report ---
PROCEDURE: MAXILLOFACIAL W INDICATIONS: facial swelling, suspect dental infection CONTRAST: IV CONTRAST: Optiray 320 ml: 100 PO CONTRAST: *NO PO CONTRAST TECHNIQUE: After the administration of intravenous contrast, 3.0 mm axial sections acquired from the mid-neck to the frontal sinuses, with coronal reformatting. For radiation dose reduction, the following was use d: automated exposure control, adjustment of mA and/or kV according to patient size. COMPARISON: None. FINDINGS: Image quality: Excellent. Soft tissues: There is mild soft tissue edema within the subcutaneous fat of the left base. Prominent right level Ib and to a lymph nodes are present. There is no focal fluid collection. Vascular: Visualized vascular structures appear patent throughout. Bony vascular foramina and canal s appear normal. Bones: Facial bones appear intact, without fractures, erosions, or destruction. Visualized portions of the skull base and auditory canals also appear normal. Sinuses: Paranasal sinuses demonstrate opacification of the right maxillary sinus. IMPRESSION: Right sided facial subcutaneous soft tissue edema with borderline enlarged lymph nodes. There is no f ocal fluid collection. Appearance is suggestive of cellulitis and clinical correlation is recommended . Occluded right maxillary sinus. Reviewed by: Monika Gamboa MD on 12/02/2021 7:47 AM PDT Approved by: Monika Gamboa MD on 12/02/2021 7:47 AM PDT Station ID: [id number]
== END 2021-12-02 09:23 | disposition home or self-care (01) ==
LOC: ED 05:38
DX: K04.7 Periapical abscess without sinus (principal); L03.211 Cellulitis of face; J01.90 Acute sinusitis, unspecified; B96.89 Other specified bacterial agents as the cause of diseases classified elsewhere
CPT/HCPCS: 36415; 70487; 80048; 85025; 96365; 96375; 96376; 99283; 99285; J1170; Q9967

== ENCOUNTER 2022-05-28 10:09 | Outpatient (CLI) | payer MEDICARE, MEDICAID ==
[2022-05-28 15:08] LABS: BASOPHILS % (AUTO) 0.6 %; EOSINOPHILS # (AUTO) 0.1 10^3/uL (0.0-0.7); EOSINOPHILS % (AUTO) 1.8 %; HCT - HEMATOCRIT 42.4 % (37.0-47.0); HGB - HEMOGLOBIN 13.6 g/dL (12.0-16.0); LYMPHOCYTES # (AUTO) 2.1 10^3/uL (1.5-3.5); LYMPHOCYTES % (AUTO) 29.7 %; MEAN CORPUSCULAR HEMOGLOBIN 32.2 pg (27.0-31.0); MEAN CORPUSCULAR HGB CONC 32.1 g/dL (32.0-36.0); MEAN CORPUSCULAR VOLUME 100.5 fL (81.0-99.0); MEAN PLATELET VOLUME 10.7 fL (7.9-10.8); MONOCYTES # (AUTO) 0.5 10^3/uL (0.0-1.0); MONOCYTES % (AUTO) 6.3 %; NEUTROPHILS # (AUTO) 4.4 10^3/uL (1.5-6.6); NEUTROPHILS % (AUTO) 61.3 %; PLT - PLATELET COUNT 312 10^3/uL (130-450); RED BLOOD COUNT 4.22 10^6/uL (4.20-5.40); RED CELL DISTRIBUTION WIDTH 13.1 % (12.0-15.0); WHITE BLOOD COUNT 7.1 x10^3/uL (4.8-10.8)
[2022-05-28 15:39] LABS: ALBUMIN 4.1 g/dL (3.2-5.5); ALBUMIN/GLOBULIN RATIO 1.4 (1.0-2.2); ALKALINE PHOSPHATASE 121 IU/L (42-121); ALT ALANINE AMINOTRANSFERASE 29 IU/L (10-60); AST ASPARTATE AMINOTRANSFERASE 22 IU/L (10-42); BILIRUBIN,TOTAL 0.7 mg/dL (0.2-1.0); BUN - BLOOD UREA NITROGEN 14 mg/dL (6-20); CARBON DIOXIDE - CO2 24 mmol/L (21-32); CHLORIDE 104 mmol/L (101-111); CHOL/HDL RATIO 3.7 (<4.4); CHOLESTEROL 155 mg/dL; CREATININE 0.5 mg/dL (0.4-1.0); GFR - MDRD 127 (>89); GLUCOSE 133 mg/dL (70-100); HDL CHOLESTEROL 42 mg/dL; LDL CHOLESTEROL,CALCULATED 43 mg/dL; SODIUM 137 mmol/L (135-145); TOTAL PROTEIN 7.1 g/dL (6.7-8.2); TRIGLYCERIDES 351 mg/dL; VLDL CHOLESTEROL 70 mg/dL
[2022-05-28 15:53] LABS: THYROID STIMULATING HORMONE 1.4 uIU/mL (0.34-5.60)
== END 2022-05-28 10:10 | disposition home or self-care (01) ==
LOC: LAB.S 10:09
PROVIDERS: ATTEND Registered Nurse
DX: Z79.899 Other long term (current) drug therapy (principal); Z13.220 Encounter for screening for lipoid disorders; Z13.29 Encounter for screening for other suspected endocrine disorder
CPT/HCPCS: 36415; 80053; 80061; 83721; 84443; 85025

== ENCOUNTER 2022-10-25 07:00 | Outpatient (CLI) | payer MEDICARE, MEDICAID ==
--- NOTE | 2022-10-25 17:02 | XRAY Report ---
PROCEDURE: Hip w/Pelvis 2-3V LT INDICATIONS: LEFT HIP PAIN TECHNIQUE: AP pelvis with lateral view(s) of the left hip(s). COMPARISON: None. FINDINGS: Bones: No fractures or dislocations. No suspicious bony lesions. Trace minimal early arthritic ch gato bilaterally within the hip joints. Soft tissues: No suspicious soft tissue calcifications or masses. IMPRESSION: No acute bony abnormality. Reviewed by: Monika Gamboa MD on 10/25/2022 5:01 PM PDT Approved by: Monika Gamboa MD on 10/25/2022 5:01 PM PDT Station ID: [id number]
== END 2022-10-25 23:59 | disposition home or self-care (01) ==
LOC: DI.S 07:00
PROVIDERS: ATTEND Registered Nurse
DX: M25.552 Pain in left hip (principal)

== ENCOUNTER 2023-04-23 13:32 | Outpatient (CLI) | payer MEDICARE, MEDICAID ==
--- NOTE | 2023-04-24 09:17 | Mammography Report ---
BILATERAL DIGITAL SCREENING MAMMOGRAM 3D/2D: 04/23/2023 CLINICAL: New baseline exam. Routine screening. No prior exams were available for comparison. There are scattered areas of fibroglandular density in both breasts (category b / 25%-50% glandular t issue). There is a biopsy clip in the right breast. No significant masses, calcifications, or other findings are seen in either breast. IMPRESSION: NEGATIVE There is no mammographic evidence of malignancy. A 1 year screening mammogram is recommended. Based on the Tyrer Cuzick model (a risk assessment model) the patient's lifetime risk is 5.7% and her 10 year risk is 2.1%. According to the ACR, ACS, and NCCN guidelines, an annual breast MRI exam susan g with mammogram is recommended if the patients lifetime risk is 20% or greater. This exam was interpreted at Station ID: [id number]. NOTE: For mammograms, a report in lay terms will be sent to the patient. Approximately 15% of breast malignancies will not be visualized mammographically. In the management of a palpable breast mass, a negative mammogram must not discourage biopsy of a clinically suspicious lesion. Electronically Signed By: Luis Manuel hernández/penrad:04/23/2023 20:59:54 ACR BI-RADS Category 1: Negative 3341F PARENCHYMAL PATTERN: (A) - The breast(s) demonstrate(s) scattered fibroglandular densities. BI-RADS CATEGORY: (1) - 1 Mammogram [id number] 1 year screening LATERALITY: (B)
== END 2023-04-23 13:33 | disposition home or self-care (01) ==
LOC: DI 13:32
PROVIDERS: ATTEND Registered Nurse
DX: Z12.31 Encounter for screening mammogram for malignant neoplasm of breast (principal); R92.323 Mammographic fibroglandular density, bilateral breasts

== ENCOUNTER 2023-04-23 13:40 | Outpatient (CLI) | payer MEDICARE, MEDICAID ==
--- NOTE | 2023-04-23 16:09 | DEXA Report ---
PROCEDURE: Dexa Spine and/or Hip INDICATIONS: POST MENOPAUSAL TECHNIQUE: Dual energy x-ray absorptiometry (DXA) was performed on a [employer] 360 System. Regions measur ed are the AP Spine, femoral neck, and if needed forearm. COMPARISON: None FINDINGS: Lumbar Spine: Bone Mineral Density 1.393 g/cm/cm,T score 1.8. Left Femoral Neck: Bone Mineral Density 0.880 g/cm/cm, T score -1.1. Left Hip: Bone Mineral Density 1.036 g/cm/cm,T score 0.2. (T score greater or equal to -1.0: NORMAL) (T score from -1.1 to -2.4: OSTEOPENIA) (T score less than or equal to -2.5 to: OSTEOPOROSIS) Impression: By WHO criteria, this patient has low bone density (osteopenia). Patients with diagnosis of osteoporosis or osteopenia should have regular bone mineral density assess ment. For those eligible for Medicare, routine testing is allowed once every 2 years. Testing frequ ency can be increased for patients who have rapidly progressing disease or for those who are receivin g medical therapy to restore bone mass. Reviewed by: Waylon Mcelroy MD on 04/23/2023 4:07 PM PST Approved by: Waylon Mcelroy MD on 04/23/2023 4:07 PM PST Station ID: [id number]
== END 2023-04-23 13:41 | disposition home or self-care (01) ==
LOC: DI 13:40
PROVIDERS: ATTEND Registered Nurse
DX: Z78.0 Asymptomatic menopausal state (principal); M85.88 Other specified disorders of bone density and structure, other site

== ENCOUNTER 2023-06-15 12:37 | Emergency (ER) | payer MEDICARE, MEDICAID ==
--- NOTE | 2023-06-15 13:08 | ED Physician Documentation ---
PD HPI CHEST PAIN - Stated complaint Stated Complaint: HIGH BP,CHEST PX - Chief complaint Chief Complaint: Cardiac - Additional information Additional information: 57-year-old female with history of hypertension, esophageal spasms, intestinal adhesions presents emergency department for complaints of chest pain. Patient was seen in urgent care yesterday for bronchitis and was started on steroids And given a steroid taper. She says that she is unsure how any milligram she took yesterday but today she is feeling very jittery and feeling like she is having a high heart rate. At home her heart rate was in 150s and then she started to no flora some midsternal chest pain she tried taking omeprazole and other antacid medications with no relief. She is flushed face and said that she is feeling very restless and anxious. PD PAST MEDICAL HISTORY - Past Medical History Cardiovascular: Hypertension Respiratory: Sleep apnea Endocrine/Autoimmune: None GI: Hiatal hernia : None HEENT: None Psych: Anxiety, Claustrophobia Musculoskeletal: Osteoarthritis Derm: None - Past Surgical History Past Surgical History: Yes General: Gastric surgery /[employer]: Hysterectomy - Present Medications Home Medications: Ambulatory Orders Medication Instructions Recorded Confirmed Chlorthalidone 12.5 mg PO DAILY 09/23/18 09/29/18 Ferrous Sulfate 325 mg PO ONCE 09/23/18 09/29/18 Gabapentin 200 mg PO TID 09/23/18 09/29/18 Ipratropium [Atrovent] 1 - 2 puffs INH Q6H PRN 09/23/18 09/29/18 Oxybutynin Chloride 5 mg PO BID PRN 09/23/18 09/29/18 Sucralfate [Carafate] 1 gm PO ACHS 09/23/18 09/29/18 lisinopriL [Lisinopril] 20 mg PO DAILY 09/23/18 09/29/18 Ibuprofen [Motrin] 800 mg PO Q8H PRN #30 tablet 12/02/21 Ondansetron Odt [Zofran] 4 mg TL Q6H PRN #10 tablet 12/02/21 Oxycodone HCl/Acetaminophen 1 - 2 each PO Q6H PRN #14 tablet 12/02/21 [Percocet 5-325 mg Tablet] - Allergies Allergies/Adverse Reactions: Allergies Allergy/AdvReac Type Severity Reaction Status Date / Time morphine Allergy Anaphylaxis Verified 06/15/23 12:57 - Social History Does the pt smoke?: No Smoking Status: Never smoker Does the pt drink ETOH?: No Does the pt have substance abuse?: No - Immunizations Immunizations are current?: Yes - POLST Patient has POLST: No PD ED PE NORMAL - Vitals Vital signs reviewed: Yes - General General: Alert and oriented X 3, Well developed/nourished, Other (SOA) - HEENT HEENT: Atraumatic, PERRL, EOMI - Cardiac Cardiac: RRR, No gallop, Strong equal pulses - Respiratory Respiratory: No respiratory distress, Clear bilaterally - Abdomen Abdomen: Normal bowel sounds, Soft - Back Back: No CVA TTP - Derm Derm: Normal color, Warm and dry, No rash - Extremities Extremities: No edema, No calf tenderness / cord - Neuro Neuro: Alert and oriented X 3, 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 Relevant findings are: Rate: Rate (enter#) (108) Rhythm: Sinus tachycardia [place]: Normal Intervals: Normal FL QRS: Normal Ischemia: Normal ST segments Other comments: Other comments 1616 EKG releavant findings:: EKG personally interpreted by author of this note. Relevant findings are: Rate: Rate (enter#) (98) Rhythm: NSR [place]: Normal Intervals: Normal FL QRS: Normal Ischemia: Normal ST segments Computer interpretation: Disagree with computer - Labs Labs: Laboratory Tests 06/15/23 06/15/23 06/15/23 13:32 13:32 15:38 WBC 11.2 H RBC 3.64 L Hgb 12.1 Hct 36.3 L MCV 99.7 H MCH 33.2 H MCHC 33.3 RDW 13.2 Plt Count 316 MPV 9.6 Neut # (Auto) 8.8 H Lymph # (Auto) 1.5 [place] # (Auto) 0.8 Eos # (Auto) 0.0 Baso # (Auto) 0.0 Absolute Nucleated RBC 0.00 Nucleated RBC % 0.0 Sodium 140 Potassium 4.2 Chloride 111 Carbon Dioxide 20 L Anion Gap 9.0 BUN 18 Creatinine 0.8 Estimated GFR (MDRD) 74 L Glucose 179 H Calcium 9.4 Total Bilirubin 0.3 AST 12 ALT 17 Alkaline Phosphatase 145 H Troponin I High Sens 97.5 H* 111.2 H* Total Protein 6.7 Albumin 4.2 Globulin 2.5 Albumin/Globulin Ratio 1.7 Lipase 28 06/15/23 18:17 WBC RBC Hgb Hct MCV MCH MCHC RDW Plt Count MPV Neut # (Auto) Lymph # (Auto) [place] # (Auto) Eos # (Auto) Baso # (Auto) Absolute Nucleated RBC Nucleated RBC % Sodium Potassium Chloride Carbon Dioxide Anion Gap BUN Creatinine Estimated GFR (MDRD) Glucose Calcium Total Bilirubin AST ALT Alkaline Phosphatase Troponin I High Sens 142.3 H* Total Protein Albumin Globulin Albumin/Globulin Ratio Lipase - Rads (name of study) 1 view chest x-ray Relevant Findings:: Final report received, EMP independent interpretation of test, Other (No acute cardiopulmonary abnormalities) Chest CT angio Relevant Findings:: Final report received, EMP independent interpretation of test, Other (No pulmonary embolism) PD Medical Decision Making - ED course ED course: 57-year-old female presents emergency department for chest pain. Patient says that she is been feeling unwell for about a week or so now but today started experiencing worsening chest pain chest heaviness. Labs are collected she has got very mild leukocytosis, WBC 11.2, RBC 3.64, hematocrit 36.3 very mildly anemic. Neutrophils elevated 8.8. Electrolytes are within normal limits, GFR 74, blood sugar 179. Alk phos slightly elevated at 145. Initial troponin came back at 97.5 because of this and patient's tachycardia and convincing symptoms we went ahead with a CT angio which did not reveal any sort of pulmonary embolism. Repeat troponin came back elevated at 111.2. Patient was given Nitropaste for her chest pain which almost entirely resolved her chest pain that she was experiencing. I am reaching out to our unit [facility] who is reaching out to other hospitals to attempt to speak with cardiology for consult. Patient has been given 325 mg of p.o. aspirin. I spoke with Dr. Bobo with [facility] who has agreed to accept the patient for further hospitalization services. I am starting patient on a heparin drip as well as a heparin bolus to. Her chest pain is coming and going and originally was resolved after nitroglycerin paste but ended up for it coming back. We took off the Nitropaste and started doing sublingual nitroglycerin which patient has reported alleviates her chest pain. Her troponins continue to trend up they are now up to 142. I will now start her on metoprolol 12.5 mg p.o. as well. Patient denies any family history of cardiac disease she denies any history of smoking she says only past medical history that she can think of is that her blood sugars have been borderline elevated but she recently had her labs reevaluated by her primary care provider and it sounds like her A1c is actually improved. Patient will be transferred via ALS to [facility] for further hospitalization workup of her chest pain and elevated troponins. Departure - Departure Disposition: 02 Transfer Acute Care Hosp Clinical Impression: NSTEMI (non-ST elevated myocardial infarction), Elevated troponin Forms: PCP List
[2023-06-15 13:38] LABS: BASOPHILS % (AUTO) 0.1 %; EOSINOPHILS % (AUTO) 0.1 %; HCT - HEMATOCRIT 36.3 % (37.0-47.0); HGB - HEMOGLOBIN 12.1 g/dL (12.0-16.0); LYMPHOCYTES # (AUTO) 1.5 10^3/uL (1.5-3.5); LYMPHOCYTES % (AUTO) 13.2 %; MEAN CORPUSCULAR HEMOGLOBIN 33.2 pg (27.0-31.0); MEAN CORPUSCULAR HGB CONC 33.3 g/dL (32.0-36.0); MEAN CORPUSCULAR VOLUME 99.7 fL (81.0-99.0); MEAN PLATELET VOLUME 9.6 fL (7.9-10.8); MONOCYTES # (AUTO) 0.8 10^3/uL (0.0-1.0); MONOCYTES % (AUTO) 7.4 %; NEUTROPHILS # (AUTO) 8.8 10^3/uL (1.5-6.6); NEUTROPHILS % (AUTO) 78.8 %; PLT - PLATELET COUNT 316 10^3/uL (130-450); RED BLOOD COUNT 3.64 10^6/uL (4.20-5.40); RED CELL DISTRIBUTION WIDTH 13.2 % (12.0-15.0); WHITE BLOOD COUNT 11.2 x10^3/uL (4.8-10.8)
[2023-06-15] MEDS: hydrOXYzine PAMOATE 25 MG CAPSULE PO STA (13:42)
--- NOTE | 2023-06-15 13:43 | XRAY Report ---
PROCEDURE: Chest 1V INDICATIONS: Chest Pain TECHNIQUE: One view of the chest was acquired. COMPARISON: None. FINDINGS: Surgical changes and devices: None. Lungs and pleura: No pleural effusions or pneumothorax. Lungs are clear. Mediastinum: Mediastinal contours appear normal. Heart size is normal. Bones and chest wall: No suspicious bony lesions. Overlying soft tissues appear unremarkable. IMPRESSION: No acute cardiopulmonary process. Reviewed by: Michelle Roberts MD on 06/15/2023 12:42 PM CLARI Approved by: Michelle Roberts MD on 06/15/2023 12:42 PM AKPIPER Station ID: [id number]
[2023-06-15 13:50] LABS: ALBUMIN 4.2 g/dL (3.2-5.5); ALBUMIN/GLOBULIN RATIO 1.7 (1.0-2.2); BILIRUBIN,TOTAL 0.3 mg/dL (0.2-1.0); CALCIUM 9.4 mg/dL (8.5-10.3); CREATININE 0.8 mg/dL (0.6-1.3); POTASSIUM 4.2 mmol/L (3.5-4.5); TOTAL PROTEIN 6.7 g/dL (6.4-8.9)
[2023-06-15 13:59] LABS: TROPONIN I HIGH SENSITIVITY 97.5 ng/L (2.3-14.8)
[2023-06-15] MEDS: ASPIRIN 325 MG TABLET PO STA (14:08)
[2023-06-15] MEDS ORDERED: iohexoL-300 100 ML VIAL ONE (14:48)
[2023-06-15] MEDS: ACETAMINOPHEN 325 MG TABLET PO STA (15:26)
[2023-06-15] MEDS: NITROGLYCERIN 2% PASTE TOP STA (15:26)
--- NOTE | 2023-06-15 15:45 | CT Report ---
PROCEDURE: Angio Chest INDICATIONS: SOA, tachycardia, CP CONTRAST: 80ml omni 300 TECHNIQUE: After the administration of intravenous contrast, 2 mm axial images were acquired from the pulmonary apices to the posterior costophrenic angles during the arterial phase. In addition, 1 mm lung kernel and 5 mm soft tissue kernel reconstructions were performed. 3-dimensional coronal oblique maximum int ensity projection (MIP) reformats, 8 mm axial MIP, and 5 mm coronal and sagittal MPR reformats were t hen performed through the thorax. For radiation dose reduction, the following was used: automated exp osure control, adjustment of mA and/or kV according to patient size. COMPARISON: None. FINDINGS: Image quality: Diagnostic. Large vessels: No filling defects within the opacified pulmonary arteries, accounting for motion and contrast timing. No evidence of acute aortic syndrome or aortic aneurysm. Lungs and pleura: No consolidation. No pleural effusions. No pneumothorax. No suspicious pulmonary n odules which require follow up. Mediastinum: Heart size is normal. No pericardial effusion. No large vessel abnormality. No mediastin al adenopathy by size criteria. Chest wall and lower neck: Thyroid is unremarkable. No axillary or supraclavicular adenopathy by size . Bones: No aggressive osseous abnormality. Upper Abdomen: Unremarkable. IMPRESSION: No pulmonary embolus. Reviewed by: Michelle Roberts MD on 06/15/2023 2:44 PM CLARI Approved by: Michelle Roberts MD on 06/15/2023 2:44 PM CLARI Station ID: [id number]
[2023-06-15] MEDS: iohexoL-300 100 ML VIAL IVP ONE (15:48)
[2023-06-15] MEDS: NITROGLYCERIN SL 0.4 MG TABLET SL STA (19:44)
[2023-06-15] MEDS: METOPROLOL SUCCINATE 25 MG TABLET PO SCH (20:02)
[2023-06-15] MEDS: HEPARIN 25000UNITS/500ML (D5W) 25,000 UNIT/500 ML BAG IV SCH (20:34)
[2023-06-15 22:27] VITALS: BP 139/90; O2SAT 97
[2023-06-16] MEDS ORDERED: METOPROLOL SUCCINATE 25 MG TABLET PO SCH (09:00)
== END 2023-06-15 22:36 | disposition short-term general hospital (02) ==
LOC: ED 12:37
DX: I21.4 Non-ST elevation (NSTEMI) myocardial infarction (principal); I10 Essential (primary) hypertension; G47.30 Sleep apnea, unspecified; Z98.84 Bariatric surgery status; Z79.899 Other long term (current) drug therapy
CPT/HCPCS: 36415; 71045; 71275; 80053; 83690; 84484; 85025; 93005; 96374; 96376; 99285; A9270; Q9967

== ENCOUNTER 2023-11-14 09:37 | Outpatient (CLI) | payer MEDICARE, MEDICAID ==
[2023-11-14 14:50] LABS: BASOPHILS % (AUTO) 0.4 %; EOSINOPHILS # (AUTO) 0.1 10^3/uL (0.0-0.7); EOSINOPHILS % (AUTO) 1.4 %; HCT - HEMATOCRIT 40.5 % (37.0-47.0); HGB - HEMOGLOBIN 13.3 g/dL (12.0-16.0); LYMPHOCYTES # (AUTO) 2.2 10^3/uL (1.5-3.5); LYMPHOCYTES % (AUTO) 28.5 %; MEAN CORPUSCULAR HEMOGLOBIN 32.3 pg (27.0-31.0); MEAN CORPUSCULAR HGB CONC 32.8 g/dL (32.0-36.0); MEAN CORPUSCULAR VOLUME 98.3 fL (81.0-99.0); MEAN PLATELET VOLUME 10.4 fL (7.9-10.8); MONOCYTES # (AUTO) 0.5 10^3/uL (0.0-1.0); MONOCYTES % (AUTO) 6.2 %; NEUTROPHILS % (AUTO) 63.2 %; PLT - PLATELET COUNT 314 10^3/uL (130-450); RED BLOOD COUNT 4.12 10^6/uL (4.20-5.40); RED CELL DISTRIBUTION WIDTH 12.8 % (12.0-15.0); WHITE BLOOD COUNT 7.9 x10^3/uL (4.8-10.8)
[2023-11-14 16:35] LABS: ALBUMIN 4.1 g/dL (3.2-5.5); ALBUMIN/GLOBULIN RATIO 1.4 (1.0-2.2); ALKALINE PHOSPHATASE 99 IU/L (42-121); ALT ALANINE AMINOTRANSFERASE 24 IU/L (10-60); AST ASPARTATE AMINOTRANSFERASE 18 IU/L (10-42); BILIRUBIN,TOTAL 0.4 mg/dL (0.2-1.0); BUN - BLOOD UREA NITROGEN 20 mg/dL (6-20); CALCIUM 9.1 mg/dL (8.5-10.3); CARBON DIOXIDE - CO2 23 mmol/L (21-32); CHLORIDE 104 mmol/L (101-111); CHOL/HDL RATIO 4.3 (<4.4); CHOLESTEROL 143 mg/dL; CREATININE 1.1 mg/dL (0.6-1.3); GFR - MDRD 51 (>89); GLUCOSE 143 mg/dL (74-104); HDL CHOLESTEROL 33 mg/dL; POTASSIUM 4.1 mmol/L (3.5-4.5); SODIUM 135 mmol/L (135-145); TRIGLYCERIDES 518 mg/dL
[2023-11-14 16:49] LABS: CREATININE,URINE 54.2 mg/dL; MICROALBUMIN,URINE 4.5 mg/dL
[2023-11-14 16:52] LABS: THYROID STIMULATING HORMONE 1.35 uIU/mL (0.34-5.60)
[2023-11-14 17:27] LABS: LDL CHOLESTEROL,DIRECT 50 mg/dL (75-193); LDLD/HDL RATIO 1.5 (<4.4)
[2023-11-14 21:56] LABS: ESTIMATED AVERAGE GLUCOSE 137 mg/dL (70-100); HEMOGLOBIN A1c% 6.4 % (4.27-6.07)
== END 2023-11-14 09:38 | disposition home or self-care (01) ==
LOC: LAB.S 09:37
PROVIDERS: ATTEND Registered Nurse
DX: Z13.220 Encounter for screening for lipoid disorders (principal); Z13.228 Encounter for screening for other metabolic disorders; Z13.29 Encounter for screening for other suspected endocrine disorder; Z13.0 Encounter for screening for diseases of the blood and blood-forming organs and certain disorders involving the immune mechanism; E11.9 Type 2 diabetes mellitus without complications
CPT/HCPCS: 36415; 80053; 80061; 82043; 82570; 83036; 83721; 84443; 85025

== ENCOUNTER 2023-12-22 08:00 | Outpatient (CLI) | payer MEDICARE, MEDICAID ==
[2023-12-23 00:16] LABS: BACTERIAL VAGINOSIS DNA NEGATIVE (NEGATIVE); CANDIDA GLABRATA DNA NEGATIVE (NEGATIVE); CANDIDA GROUP DNA POSITIVE (NEGATIVE); CANDIDA KRUSEI DNA NEGATIVE (NEGATIVE); TRICHOMONAS VAGINALIS DNA NEGATIVE (NEGATIVE)
== END 2023-12-22 23:59 | disposition home or self-care (01) ==
LOC: LAB 08:00
PROVIDERS: ATTEND Registered Nurse
DX: L29.8 Other pruritus (principal); R30.0 Dysuria
CPT/HCPCS: 81514; 87086; 87661; 87801

== ENCOUNTER 2023-12-22 14:24 | Outpatient (CLI) | payer MEDICARE, MEDICAID | END 2023-12-22 14:25 | disposition home or self-care (01) | LOC: LAB.S 14:24 | PROVIDERS: ATTEND Registered Nurse | DX: L29.8 Other pruritus (principal); R30.0 Dysuria | CPT/HCPCS: 87086 ==